=== PATIENT | female | born 1980 | race American Indian/Alaskan Native ===

== ENCOUNTER 2019-06-11 11:35 | Day surgery (SDC) | payer MEDICAID ==
[~2019-06-11 11:35] MED LIST: ANCEF/STERILE WATER 2 GM/20 ML 2 GM/20 ML SYRINGE IV NR; GABAPENTIN PO SCH; NACL 0.9% 1000 ML 1,000 ML IV SCH; TYLENOL PO NR
[2019-06-11] MEDS ORDERED: ZOFRAN IV PRN (12:28)
[2019-06-11] MEDS ORDERED: SUBLIMAZE IV PRN (12:28)
--- NOTE | 2019-06-11 12:29 | Anesthesia Day of Surgery ---
Anesthesia Day of Surgery - Day of Surgery Patient Examined: Yes Patient H&P Reviewed: Yes Patient is NPO: Yes
--- NOTE | 2019-06-11 12:33 | Anesthesia Consultation ---
Anesthesia Consult and Med Hx Date of service: 06/11/19 - Airway Anesthetic Teeth Evaluation: Chipped ROM Head & Neck: Adequate Mental/Hyoid Distance: Adequate Mallampati Class: Class II Intubation Access Assessment: Good - Pre-Operative Health Status ASA Pre-Surgery Classification: ASA2 Proposed Anesthetic Plan: General - Pulmonary Hx Smoking: No
[2019-06-11] MEDS ORDERED: MORPHINE IV ONE (13:00)
[2019-06-11] MEDS ORDERED: VERSED IV NR (13:00)
[2019-06-11] MEDS ORDERED: NACL 0.9% 250ML 250 ML ONE (13:49)
[2019-06-11] MEDS ORDERED: XYLOCAINE 1% 20 mL ONE (13:49)
[2019-06-11] MEDS ORDERED: MARCAINE-EPI 0.5%-1:200,000 INFILTRATI ONE (13:49)
[2019-06-11] MEDS ORDERED: HEPARIN 10,000 UNITS/10 ML ONE (13:49)
[2019-06-11] MEDS ORDERED: NACL P/F VIAL (10 ML) 10 ML ONE (13:50)
--- NOTE | 2019-06-11 14:05 | Short Stay Summary ---
Short Stay Documentation Date of service: 06/11/19 - History H&P: obtained from office - Allergies and Medications Current Medications: Allergies bupropion [From Wellbutrin] Allergy (Intermediate, Verified 06/11/19 12:52) Hives RESPERAL Allergy (Intermediate, Uncoded 06/11/19 12:52) Hives Home Medications Medication Instructions Recorded Confirmed Last Taken Type HYDROcodone/APAP 5-325 [[place] 1 each PO Q6HR PRN 06/11/19 06/11/19 06/10/19 History 5/325] Active Medications Acetaminophen (Tylenol) 1,000 mg PO PREOP NR Stop: 06/11/19 16:00 Last Admin: 06/11/19 12:40 Dose: 1,000 mg Documented by: Celecoxib (Celebrex) 200 mg PO PREOP NR Stop: 06/11/19 16:00 Last Admin: 06/11/19 12:40 Dose: 200 mg Documented by: Fentanyl (Sublimaze) 50 mcg IV Q5MIN PRN PRN Reason: Pain , Severe (7-10) Stop: 06/11/19 23:00 Gabapentin (Neurontin) 600 mg PO PREOP BRYANT Stop: 06/11/19 16:00 Last Admin: 06/11/19 12:40 Dose: 600 mg Documented by: Sodium Chloride (Nacl 0.9% 1000 Ml) 1,000 mls @ 75 mls/hr IV DIRECT BRYANT Last Admin: 06/11/19 12:50 Dose: 75 mls/hr Documented by: Cefazolin Sodium (Ancef/Sterile Water 2 Gm/20 Ml) 2 gm in 20 mls @ 80 mls/hr IV PREOP NR; Protocol Stop: 06/11/19 16:00 Midazolam HCl (Versed) 2 mg IV PREOP NR Stop: 06/11/19 23:59 Last Admin: 06/11/19 12:52 Dose: 2 mg Documented by: Ondansetron HCl (Zofran) 4 mg IV ONCE PRN PRN Reason: Nausea And Vomiting - Physical exam General appearance: no acute distress Integumentary: no rash Lungs: Normal air movement Neurological: Normal speech - Brief post op/procedure progress note Date of procedure: 06/11/19 (dictation:[id number]) Pre-op diagnosis: left breast cancer Post-op diagnosis: same Procedure: US guided port placement IVF 700cc EBL min Anesthesia: GETA Findings: normal anatomy Surgeon: MANSI ARREOLA Estimated blood loss: minimal Pathology: none Condition: stable - Hospital course Hospital course: uneventful - Disposition Condition at discharge: Stable Disposition: DC-01 TO HOME OR SELFCARE Short Stay Discharge Plan Diet: regular Wound: open to air, keep clean and dry Special Instructions: no heavy lifting (for 1 week) Additional Instructions: Post Operative Instructions Activity: no heavy lifting for next 1 week. May shower tomorrow. Pat dry the wound or wounds. Keep incision sites clean and dry After surgery, start with a light diet. Consider having a liquid diet first. If you do well, you can advance to a regular diet as you feel comfortable. Apply an ice pack to the wound or wounds for 10-20 minutes at a time. Do this at least 4-5 times a day. You can do it more if he would like. Alternate the use of ibuprofen and Tylenol for the first 2 days. I want you to take these on a scheduled basis. Take 600 mg of ibuprofen every 6 hours. Take 500 mg of Tylenol every 6 hours. You should alternate these 2 medicines. In other words, beginning with the ibuprofen. After 3 hours, take the Tylenol. Keep alternating the 2 drugs every 3 hours. Do this on a scheduled basis for the first 2 days. After that, you can take them as needed. It is very important that you use the prescription pain medicine only for very severe pain. YOU WERE MEDICATED WITH 1 HYDROCODONE TAB BY MOUTH AT 4:30 PM . Do not take the prescription medicine before you try using the ibuprofen and Tylenol. We will call you in a couple of days to see how youre doing. If you have any questions or concerns, always feel free to call the clinic at any time. Home with Smart Port Booklet and Smart ID CARD Follow up with: MARY QUIÑONEZ MD [Primary Care Provider] - 7 Days Forms: Outpatient Surgery DC Inst. Prescriptions: HYDROcodone/APAP 5-325 [[place] 5-325 mg TAB] 1 tab PO Q6HR PRN #20 PRN Reason: Pain , Severe (7-10)
[2019-06-11] MEDS ORDERED: DILAUDID ONE (14:14)
[2019-06-11] MEDS ORDERED: XYLOCAINE MPF 2% ONE (14:14)
[2019-06-11] MEDS ORDERED: DIPRIVAN 10 MG/ML IV ONE (14:14)
[2019-06-11] MEDS ORDERED: HEPARIN IV ONE (14:34)
[2019-06-11] MEDS ORDERED: NACL 0.9% 250ML IV ONE (14:35)
[2019-06-11] MEDS ORDERED: MARCAINE-EPI/PF 0.5%-1:200,000 INFILTRATI ONE (14:35)
[2019-06-11] MEDS ORDERED: XYLOCAINE 1% 20 mL INFILTRATI ONE (14:35)
[2019-06-11] MEDS ORDERED: TORADOL ONE (15:10)
[2019-06-11] MEDS ORDERED: ZOFRAN ONE (15:10)
--- NOTE | 2019-06-11 15:35 | Fluoroscopy Report ---
FLUOROSCOPY CENTRAL VENOUS DEVICE PLACEMENT HISTORY: Left breast cancer, Cgykiv-t-Blay insertion FINDINGS: 31 seconds of fluoroscopy time was provided by radiology during right Alzwge-r-Hacm placeme nt. 2 AP images of the chest are presented. The distal tip of the Jrngvx-g-Tolw terminates in the sup erior right atrium. There is poor in aspiration. No evidence for pneumothorax. Prominence is noted in both hilar regions. Heart size is within normal limits. IMPRESSION: Right Mywmxq-s-Mhos placement. No pneumothorax. Signer Name: Remington Miller Jr, MD Signed: 06/11/2019 3:31 PM Workstation Name: [id number]
--- NOTE | 2019-06-11 15:53 | Operative Report ---
PREOPERATIVE DIAGNOSIS: Left breast cancer. POSTOPERATIVE DIAGNOSIS: Left breast cancer. PROCEDURES: 1. Tunneled central venous catheter with subcutaneous port. 2. Ultrasound-guided vascular access. ATTENDING PHYSICIAN: Hayley Romeo MD ANESTHESIA: General. ESTIMATED BLOOD LOSS: Minimal. FLUIDS: 700 mL. FINDINGS: Normal vascular anatomy. IMPLANTS: Smart port. COMPLICATIONS: None. DISPOSITION: Stable, transferred to Recovery Room. INDICATIONS: This is a 38-year-old female, who was recently diagnosed with left breast cancer. Initial plans were made for a surgical intervention. However, the breast cancer advanced rapidly such that neoadjuvant therapy was felt to be needed. The patient was sent to General Surgery for port placement. Procedure, risks, and benefits were explained to patient. Risks included, but were not limited to, infection, bleeding, pain, injury to surrounding structures, possible port malfunction or infection, and possible need for further procedures in the future. The patient understood and consented. OPERATIVE NOTE: The patient was brought to the operating room and placed on the table in supine position. Initial ultrasound evaluation was done after general anesthesia was established. Subclavian vein was very small and deep. Internal jugular vein was widely patent and no stenosis, no clots, and no abnormalities along the entire length under the ultrasound guidance. Sterile prep and drape was performed. Time-out was called. SCDs were in place. Antibiotics had been given. Under ultrasound guidance, I anesthetized the planned insertion site in the area just above the vein. A small incision was made. An introducer needle was inserted under ultrasound guidance. I watched the needle go into the vein directly. We had good aspiration of blood. Guidewire went in easily. However, we did not go all the way as we normally expected. Fluoroscopy was brought in. Wire was going down the right subclavian vein and this was pulled back and then redirected under fluoroscopic guidance and it went into the appropriate location in the right side of the heart. Guidewire was secured. Planned pocket site was anesthetized. Oblique incision was made along the lines of skin tension. Subcutaneous pocket was created. Additional local was injected and the catheter tract site was anesthetized. Tunneler was passed and brought out the vascular access site. After that, the dilator and sheath were passed over the guidewire very easily. Dilator and wire were removed. Catheter was inserted under fluoroscopic guidance. We adjusted the length to be approximately 2-3 vertebral bodies below the shreya. We then divided the distal aspect of the catheter, attached to the port, and then placed in the pocket. We had very good aspiration and flushing with dilute heparinized saline. The patient was placed in the reverse Trendelenburg position at this point. A locking solution was administered. Additional local was administered. Please note the patient had been in Trendelenburg position during the beginning portion of the case and then was changed to reverse Trendelenburg once the catheter was in position. Deep layer of the pocket was closed with interrupted 3-0 Vicryl sutures. Skin was closed with 4-0 Monocryl subcuticular stitches. Skin was cleaned and dried. Dermabond was placed. The patient tolerated procedure well. There were no complications. All counts were correct at the end. Chest x-ray unofficially per my read shows no evidence of any complication. Catheter appears to be in good position and there was no kinking of the catheter. I spoke with the godmother, Ms. Silverio, at the end of the case by phone. JOB# [id number] SPENSER/VIVIENNE
[2019-06-11] MEDS ORDERED: NORCO 5/325 PO PRN (16:04)
[2019-06-11 16:24] VITALS: BP 116/72
--- NOTE | 2019-06-11 21:21 | Post Anesthesia Evaluation ---
- Post Anesthesia Evaluation Patient Participated: Yes Airway Patent: Yes Stable Respiratory Function: Yes Nausea/Vomiting: No Temp > 96.8F: Yes Pain Manageable: Yes Adequeate Hydration: Yes Anesthesia Complications: No Block Receding Appropriately: Not Applicable Patient on Ventilator: No
== END 2019-06-11 11:36 | disposition home or self-care (01) ==
LOC: OR 11:35
PROVIDERS: ATTEND Surgery
DX: C50.212 Malignant neoplasm of upper-inner quadrant of left female breast (principal); Z88.8 Allergy status to other drugs, medicaments and biological substances; Z79.899 Other long term (current) drug therapy; Z87.891 Personal history of nicotine dependence; Z98.890 Other specified postprocedural states
CPT/HCPCS: 36561; 77001; 81025; C1788; J0690; J1170; J1644; J1885; J2250; J2270; J2405; J2704; J7030; J7050

== ENCOUNTER 2019-08-29 13:23 | Emergency (ER) | payer MEDICAID ==
[2019-08-29] MEDS ORDERED: oxyCODONE /ACETAMINOPHEN 5-325MG TAB PO ONE (14:49)
[2019-08-29] MEDS ORDERED: ONDANSETRON 4 MG ODT TAB PO ONE (14:49)
--- NOTE | 2019-08-29 14:54 | Emergency Department Report ---
ED General Adult HPI - General Chief complaint: Chest Pain Stated complaint: CHEST PAIN Time Seen by Provider: 08/29/19 14:43 Source: patient Mode of arrival: Stretcher Limitations: No Limitations - History of Present Illness Initial comments: Patient presents to the emergency Department chief complaint of left breast pain. Patient has a history of breast cancer is currently receiving chemotherapy. Patient states that she missed her last chemotherapy treatment which was on August 20 due to being incarcerated. Patient states she was rested on August 14 and released today. Patient states that she normally takes Percocet for her breast pain. [facility] next Monday for reinitiation of her chemotherapy. She is breast surgeon is Dr. Velasquez. Patient denies any air chest pain, shortness breath, recent travel. Patient also denies any leg pain. -: Gradual Location: chest Radiation: non-radiation Severity scale (0 -10): 8 Quality: aching Consistency: constant Improves with: none Worsens with: none Associated Symptoms: denies other symptoms Treatments Prior to Arrival: none - Related Data Previous Rx's Medication Instructions Recorded Last Taken Type HYDROcodone/APAP 5-325 [[place] 1 tab PO Q6HR PRN #20 06/11/19 Unknown Rx 5-325 mg TAB] Ondansetron [Zofran Odt] 4 mg PO Q4HR PRN #20 tab.rapdis 08/29/19 Unknown Rx oxyCODONE /ACETAMINOPHEN [Percocet 1 tab PO Q6HR PRN #20 tablet 08/29/19 Unknown Rx 5/325] Allergies Allergy/AdvReac Type Severity Reaction Status Date / Time bupropion [From Wellbutrin] Allergy Intermediate Hives Verified 06/11/19 12:52 divalproex sodium Allergy Unknown Verified 08/29/19 14:02 [From Depakote] RESPERAL Allergy Intermediate Hives Uncoded 06/11/19 12:52 ED Review of Systems ROS: Stated complaint: CHEST PAIN Other details as noted in HPI Comment: All other systems reviewed and negative Constitutional: denies: chills, fever Eyes: denies: eye pain, eye discharge, vision change ENT: denies: ear pain, throat pain Respiratory: denies: cough, shortness of breath, wheezing Cardiovascular: denies: chest pain, palpitations Endocrine: no symptoms reported Gastrointestinal: denies: abdominal pain, nausea, diarrhea Genitourinary: denies: urgency, dysuria, discharge Musculoskeletal: denies: back pain, joint swelling, arthralgia Skin: denies: rash, lesions Neurological: denies: headache, weakness, paresthesias Psychiatric: denies: anxiety, depression Hematological/Lymphatic: denies: easy bleeding, easy bruising ED Past Medical Hx - Past Medical History Previous Medical History?: Yes 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 - Social History Smoking Status: Former Smoker Substance Use Type: None - Medications Home Medications: Home Medications Medication Instructions Recorded Confirmed Last Taken Type HYDROcodone/APAP 5-325 [[place] 1 tab PO Q6HR PRN #20 06/11/19 Unknown Rx 5-325 mg TAB] Ondansetron [Zofran Odt] 4 mg PO Q4HR PRN #20 tab.rapdis 08/29/19 Unknown Rx oxyCODONE /ACETAMINOPHEN [Percocet 1 tab PO Q6HR PRN #20 tablet 08/29/19 Unknown Rx 5/325] ED Physical Exam - General Limitations: No Limitations General appearance: alert, in no apparent distress - Head Head exam: Present: atraumatic, normocephalic, other (there is alopecia secondary to chemotherapy) - Eye Eye exam: Present: normal appearance, PERRL, EOMI - ENT ENT exam: Present: mucous membranes moist - Neck Neck exam: Present: normal inspection - Respiratory Respiratory exam: Present: normal lung sounds bilaterally, other (patient has a mass to the left breast). Absent: respiratory distress - Cardiovascular Cardiovascular Exam: Present: regular rate, normal rhythm. Absent: systolic murmur, diastolic murmur, rubs, gallop - GI/Abdominal GI/Abdominal exam: Present: soft, normal bowel sounds - Extremities Exam Extremities exam: Present: normal inspection - Back Exam Back exam: Present: normal inspection - Neurological Exam Neurological exam: Present: alert, oriented X3, CN II-XII intact. Absent: motor sensory deficit - Psychiatric Psychiatric exam: Present: normal affect, normal mood - Skin Skin exam: Present: warm, dry, intact, normal color. Absent: rash ED Medical Decision Making - Medical Decision Making The patient politely declined a cardiac workup stating it's just the mass in her left breast that's causing pain. Critical care attestation.: If time is entered above; I have spent that time in minutes in the direct care of this critically ill patient, excluding procedure time. ED Disposition Clinical Impression: Breast pain, left, Breast cancer Disposition: TO HOME OR SELFCARE Is pt being admited?: No Does the pt Need Aspirin: No Condition: Stable Instructions: Breast Cancer (ED) Additional Instructions: return if worse Referrals: PRIMARY CAREMD [Primary Care Provider] - 3-5 Days MARY VELASQUEZ MD [Staff Physician] - 3-5 Days Time of Disposition: 14:54
[2019-08-29 15:42] VITALS: BP 107/73
== END 2019-08-29 15:34 | disposition home or self-care (01) ==
LOC: EEVIPCON 13:23 → ED 13:23
DX: C50.912 Malignant neoplasm of unspecified site of left female breast (principal); Z87.891 Personal history of nicotine dependence; Z79.899 Other long term (current) drug therapy; Z88.8 Allergy status to other drugs, medicaments and biological substances
CPT/HCPCS: Q0162

== ENCOUNTER 2019-10-15 11:24 | Outpatient (CLI) | payer MEDICAID ==
--- NOTE | 2019-10-15 13:49 | Ultrasound Report ---
LEFT DIGITAL DIAGNOSTIC MAMMOGRAM WITH CAD 10/15/2019 LEFT COMPLETE BREAST ULTRASOUND INDICATION: Follow-up known left breast cancer under treatment with chemotherapy. TECHNIQUE: Digital left mammographic imaging was performed. Complete ultrasound of all four (4) quad rants was performed. This examination was interpreted with the benefit of Computer-Aided Detection (C AD) analysis. COMPARISON: 04/04/2019 mammogram and left breast ultrasound FINDINGS: Breast Density: The breast is almost entirely fatty. MAMMOGRAPHIC FINDINGS: The known left breast cancer in the upper inner quadrant is in irregular circu mscribed mass measuring 7.8 x 7.1 x 7.1 cm compared to 3.5 x 3.4 x 3.0 cm on the last mammogram. 2 ad ditional satellite masses on the MLO view measuring 1.5 x 1.1 cm. No suspicious calcifications. ULTRASOUND FINDINGS: Complete sonographic evaluation of all 4 quadrants and retroareolar region was p erformed. Ultrasound of the left breast demonstrated an oval irregular solid heterogeneous hypoecho ic mass at 10:00 10 cm from the nipple measuring approximately 7.0 x 4.7 x 7.5 cm compared to 2.4 x 2 .3 x 2.4 cm on the last ultrasound. In addition to adjacent masses at 11:00 8 cm from the nipple ochoa ure 1.4 x 0.9 x 1.1 cm and there are 0.8 x 0.9 x 0.8 cm. Ultrasound of the left axilla demonstrated a single lymph node with a fatty hilum measuring 1.1 cm. The cortex measures 4.8 mm in thickness. IMPRESSION: A poor response to chemotherapy with the known cancer triple its previous size. 2 new sat ellite masses measure 1.4 and 0.9 cm at 11:00 8 cm from the nipple. A single left axillary lymph node with only mild cortical thickening. BI-RADS Category 6: Known Biopsy-Proven Malignancy. A "normal" or negative report should not discourage follow up or biopsy of a clinically significant f inding. A written summary of these findings will be mailed to the patient. The patient will be entered into a mammography reporting system which will generate a reminder letter for the patient's next appointmen t at the appropriate interval. According to the [employer], yearly mammograms are recommended starting at age 40 and continuing as long as a woman is in good health. Breast MRI is recommended for women with an dereck roximately 20-25% or greater lifetime risk of breast cancer, including women with a strong family his tory of breast or ovarian cancer and women who have been treated for Hodgkin's disease. Signer Name: Giorgio Best MD Signed: 10/15/2019 1:44 PM Workstation Name: [id number]
== END 2019-10-15 11:25 | disposition home or self-care (01) ==
LOC: SPVWC 11:24
PROVIDERS: ATTEND Surgery
DX: C50.912 Malignant neoplasm of unspecified site of left female breast (principal); N63.22 Unspecified lump in the left breast, upper inner quadrant

== ENCOUNTER 2019-11-06 08:32 | Observation (INO) | payer MEDICAID ==
--- NOTE | 2019-11-04 10:20 | Anesthesia Consultation ---
Anesthesia Consult and Med Hx Date of service: 11/04/19 - Airway Anesthetic Teeth Evaluation: Poor (some missing teeth), Chipped (some front teeth) ROM Head & Neck: Adequate Mental/Hyoid Distance: Adequate Mallampati Class: Class II Intubation Access Assessment: Probably Good - Pre-Operative Health Status ASA Pre-Surgery Classification: ASA3 Proposed Anesthetic Plan: General Nerve Block: PEC - Pulmonary Hx Smoking: No (SINCE AGE 14 1.5PPD; QUIT 03/2019) Hx Asthma: Yes ( A CHILD) - Central Nervous System Hx Seizures: Yes ( A CHILD) Hx Psychiatric Problems: Yes (Anxiety/depression, PTSD) - Hematic Hx Anemia: Yes - Other Systems Hx Alcohol Use: No Hx Substance Use: No Hx Cancer: Yes (Left breast CA, s/p chemo, not responding) Hx Obesity: Yes
[~2019-11-06 08:32] MED LIST changes: -ANCEF/STERILE WATER 2 GM/20 ML 2 GM/20 ML SYRINGE IV NR; +CELECOXIB 200 MG CAP PO NR; +FAMOTIDINE 20 MG/2 ML INJ IV NR; +GABAPENTIN 300 MG CAP PO NR; -GABAPENTIN PO SCH; +LACTATED RINGERS 1,000 ML IV SCH; +MIDAZOLAM 2 MG/2 ML INJ IV NR; -NACL 0.9% 1000 ML 1,000 ML IV SCH; +SCOPOLAMINE TRANSDERMAL PATCH 72 HR TD NR; -TYLENOL PO NR; +ceFAZolin/Water 2 GM/20 ML 2 GM/20 ML SYRINGE IV NR; +fentaNYL 100 MCG/2 ML INJ IV NR
[2019-11-06] MEDS ORDERED: dexAMETHasone 4 MG/ML VIAL ONE (11:34)
[2019-11-06] MEDS ORDERED: BUPIVACAINE-EPINEPHRINE/PF 0.25%-1:200,000 (30 ML) VIAL INFILTRATI ONE (11:35)
[2019-11-06] MEDS ORDERED: HYDROmorphone 1 MG/1 ML INJ IV PRN (11:45)
--- NOTE | 2019-11-06 11:45 | Anesthesia Day of Surgery ---
Anesthesia Day of Surgery - Day of Surgery Patient Examined: Yes Patient H&P Reviewed: Yes Patient is NPO: Yes
[2019-11-06] MEDS ORDERED: ONDANSETRON 4 MG/2 ML INJ ONE (11:53)
[2019-11-06] MEDS ORDERED: dexAMETHasone 20 MG/5 ML VIAL ONE (11:53)
[2019-11-06] MEDS ORDERED: fentaNYL 100 MCG/2 ML INJ ONE ×3 (11:53→14:06)
[2019-11-06] MEDS ORDERED: propofoL 200 MG/20 ML VIAL IV ONE (11:54)
[2019-11-06] MEDS ORDERED: METHYLENE BLUE 50 MG/10 ML AMP ONE (12:07)
[2019-11-06] MEDS ORDERED: KETAMINE/STERILE WATER 50 MG/ML SYRINGE ONE ×2 (13:04→17:02)
[2019-11-06] MEDS ORDERED: WATER FOR IRRIG STERILE 1,500 ML BOTTLE IR ONE (14:00)
[2019-11-06] MEDS ORDERED: SODIUM CHLORIDE 0.9% P/F 10 ML VIAL INFILTRATI ONE (14:01)
[2019-11-06] MEDS ORDERED: METHYLENE BLUE 50 MG/10 ML AMP IRRIGATION ONE (14:01)
[2019-11-06] MEDS ORDERED: MORPHINE 2 MG/1 ML INJ ONE (14:17)
[2019-11-06] MEDS ORDERED: ceFAZolin 1 GM VIAL ONE (17:10)
[2019-11-06] MEDS ORDERED: LACTATED RINGERS 2,000 ML ONE (17:48)
[2019-11-06] MEDS ORDERED: HYDROmorphone 1 MG/1 ML INJ ONE (19:03)
[2019-11-06] MEDS ORDERED: LACTATED RINGERS 1,000 ML ONE (19:05)
--- NOTE | 2019-11-06 19:24 | Operative Report ---
Operative Report Operative Report: Date of Service: November 06, 2019 Preoperative diagnosis: Left breast cancer of the upper inner quadrant Postoperative diagnosis: Same Procedure: Left total mastectomy with sentinel lymph node biopsy followed by ALND and right total mastectomy Surgeon: Flor Velasquez M.D. Hoop Expander: Dr. Lorenz Anesthesia: Gen. Findings: Left breast clip present within left total mastectomy. 1 axillary lymph node identified and positive for malignancy on frozen section of pathology and proceeded with left axillary lymph node dissection Complications: None Drains: Two 19 Cypriot DAVID drains on left and one right 19 [place] DAVID Estimated blood loss: 150-200 cc Disposition: PACU in good condition Indications for operative procedure: This is a 38-year-old lady with stage III left breast cancer of the upper inner quadrant; IDCA grade 3 cT3N0/1M0. She was started on neoadjuvant chemotherapy with disease progression after patient missed chemotherapy due to incareration. She was resumed on chemotherapy and regimen changed after left breast cancer mass continued to increase in size and breast cancer mass continued to increase despite change in chemotherapy. Recommendations were to proceed with left total mastectomy and plastic surgery available if skin not able to be closed primarily. She wished to proceed with a prophylactic right mastectomy as well. Procedure in detail: The patient was taken to the operating room and was placed supine. Gen. anesthesia was administered. The left nipple was injected with radioisotope and 1 cc of methylene blue. Bilateral chest and axillas were prepped and draped in the normal sterile operative fashion. Timeout was performed. Typical mastectomy incision markings were made with left mastectomy encompassing known cancer of the upper inner quadrant, left breast cancer mass at 11:00 position 5 cm from the nipple of at least 8-10 cm. Attention was taken toward the right breast first. First began raising of the superior flap to the level of the clavicle superiorly and posteriorly to the pectoralis muscle. Followed by raising of the medial flap to the level of the sternum and posteriorly to the pectoralis muscle. Followed by raising of the lateral flap to the level of the latissimus dorsi muscle and taken down posteriorly. Followed by raising of the inferior flap to the level of the inframammary fold taken posterior to the pectoralis muscle. The mastectomy/breast was removed from the pectoralis muscle without incident. The specimen was appropriately marked and sent to pathology. Hemostasis was obtained. The port was noted and unharmed. DAVID drain placed. The subcutaneous tissues were approximated and closed using interrupted 3-0 Vicryl followed by running 4-0 Monocryl and dermabond. Attention was taken towards the left breast. A gamma probe was inserted into the axilla to identify the sentinel lymph node location with uptake noted. Skin markings were made to include the area of known cancer. A skin incision was made with a 10 blade knife and dissection taken down to the subcutaneous tissues. First began raising of the superior flap to the level of the clavicle superiorly and posteriorly to the pectoralis muscle. Followed by raising of the medial flap to the level of the sternum and posteriorly to the pectoralis muscle. Followed by raising of the lateral flap to the level of the latissimus dorsi muscle and taken down posteriorly. The gamma probe was inserted into the axilla, the axillary fascia was opened and 2 axillary lymph nodes were identified that was dissected free and sent to pathology. Patient with negative axillary lymph node prior to chemotherapy but clinically concerned and probable false negative. Axillary lymph node was sent to pathology with findings positive for malignancy noted on frozen section. Then proceeded with raising of the inferior flap to the level of the inframammary fold taken posterior to the pectoralis muscle. The mastectomy/breast was removed from the pectoralis muscle without incident. The specimen was appropriately marked and sent to radiology with findings of breast clip present and sent to pathology. Attention was then taken towards the left axilla. First began opening of the axillary fascia further. The lattismus dorsi muscle was identified and followed superiorly. Then proceeded with identification of the axillary vein followed by identification of the thoracodorsal bundle and long thoracic nerve. Axillary lymph nodes were then removed from the above boundaries with the aid of the bovie cautery in a sweeping-like motion and then sent to pathology. Axillary lymph nodes from level I and II were removed. Both nerves were identified and unharmed. Some bulky axillary lymphadenopathy was noted. Hemostasis was noted. The chest wall was irrigated and suctioned. Hemostasis was obtained. 2 DAVID drains were placed. The subcutaneous tissues were approximated and closed using interr upted 3-0 Vicryl followed by a running 4-0 Monocryl and dermabond. She was extubated and transported to PACU in good condition.
--- NOTE | 2019-11-06 19:28 | Short Stay Summary ---
Short Stay Documentation Date of service: 11/06/19 - History H&P: obtained from office - Allergies and Medications Current Medications: Allergies bupropion [From Wellbutrin] Allergy (Intermediate, Verified 10/29/19 14:32) Hives and Hallucinations divalproex sodium [From Depakote] Allergy (Verified 10/29/19 14:32) Itching RESPERAL Allergy (Intermediate, Uncoded 06/11/19 12:52) Hives Home Medications Medication Instructions Recorded Confirmed Last Taken Type Ondansetron [Zofran Odt] 4 mg PO Q4HR PRN #20 tab.rapdis 08/29/19 11/06/19 11/03/19 Rx ALPRAZolam [Xanax TAB] 1 tab PO QHS 10/29/19 11/06/19 11/05/19 History Oxycodone HCl [roxiCODONE] 30 mg PO TID PRN 10/29/19 10/29/19 11/06/19 07:00 History Promethazine [Phenergan] 25 mg PO Q6HR PRN 10/29/19 11/06/19 11/05/19 History oxyCODONE ER [oxyCONTIN ER] 20 mg PO Q12HR 10/29/19 10/29/19 11/06/19 07:00 History Active Medications Hydromorphone HCl (Dilaudid) 0.5 mg IV Q10MIN PRN PRN Reason: Pain , Severe (7-10) Stop: 11/06/19 20:00 Cefazolin Sodium (Ancef/Sterile Water 2 Gm/20 Ml) 2 gm in 20 mls @ 80 mls/hr IV PREOP NR; Protocol Stop: 11/06/19 23:59 Lactated Ringer's (Lactated Ringers) 1,000 mls @ 100 mls/hr IV DIRECT BRYANT Last Admin: 11/06/19 11:55 Dose: 100 mls/hr Documented by: Midazolam HCl (Versed) 2 mg IV PREOP NR Stop: 11/06/19 23:59 Last Admin: 11/06/19 12:04 Dose: 2 mg Documented by: - Brief post op/procedure progress note Date of procedure: 11/06/19 Pre-op diagnosis: left breast cancer Post-op diagnosis: same Procedure: left MRM and right total mastectomy Anesthesia: GETA Findings: left breast clip; left pos SLN and proceeded with ALND Surgeon: MARY QUIÑONEZ Estimated blood loss: other (150-200 cc) Pathology: list Specimen disposition: to lab Condition: stable - Disposition Condition at discharge: Good Disposition: [id number]/TX-[id number]-[facility]M [facility] HOSP IP Short Stay Discharge Plan Activity: other (no heavy lifting) Diet: regular Wound: keep clean and dry (wear breast binder) Follow up with: PRIMARY CAREMD [Primary Care Provider] - 7 Days MARY QUIÑONEZ MD [Staff Physician] - 7 Days
[2019-11-06] MEDS ORDERED: ONDANSETRON 4 MG/2 ML INJ IV PRN ×2 (19:29→19:36)
[2019-11-06] MEDS ORDERED: METOCLOPRAMIDE 10 MG TAB PO PRN (19:29)
[2019-11-06] MEDS ORDERED: diphenhydrAMINE 25 MG CAP PO PRN (19:29)
[2019-11-06] MEDS ORDERED: ACETAMINOPHEN 325 MG TAB PO PRN (19:29)
[2019-11-06] MEDS ORDERED: oxyCODONE /ACETAMINOPHEN 5-325MG TAB PO PRN (19:29)
[2019-11-06] MEDS ORDERED: MORPHINE 2 MG/1 ML INJ IV PRN (19:31)
[2019-11-06] MEDS ORDERED: LACTATED RINGERS 1,000 ML IV SCH (20:00)
--- NOTE | 2019-11-06 20:09 | Post Anesthesia Evaluation ---
- Post Anesthesia Evaluation Patient Participated: Yes Airway Patent: Yes Stable Respiratory Function: Yes Nausea/Vomiting: No Temp > 96.8F: Yes Pain Manageable: Yes Adequeate Hydration: Yes Anesthesia Complications: No
[2019-11-06] MEDS: DOCUSATE SODIUM 100 MG CAP PO SCH (22:11)
[2019-11-07] MEDS: HYDROmorphone 2 MG TAB PO PRN ×2 (02:23→08:15)
--- NOTE | 2019-11-07 07:28 | Progress Note ---
Assessment and Plan This is a 38 year old lady with Stage III left breast cancer of upper inner quadrant, POD# 1 right total mastectomy and left MRM. 1. No acute events overnight. 2. Pain in good control. 3. Bilateral chest incision healing well, skin well perfused, no hematoma. 4. DAVID drain education. 5. OOB to hallway. 6. D/C planning for today Subjective Date of service: 11/07/19 Principal diagnosis: Left breast cancer Interval history: POD#1 right total mastectomy and left MRM Objective - Constitutional Vitals: Vital Signs - 12hr 11/06/19 11/06/19 11/06/19 19:30 19:35 19:45 Temperature Pulse Rate 103 H 96 H 91 H Respiratory 16 16 16 Rate Blood Pressure 132/88 131/89 125/85 Blood Pressure [Right] O2 Sat by Pulse 99 99 99 Oximetry 11/06/19 11/06/19 11/06/19 20:00 20:15 20:37 Temperature 97.8 F 98.4 F Pulse Rate 90 84 82 Respiratory 16 16 18 Rate Blood Pressure 131/91 131/98 Blood Pressure 133/86 [Right] O2 Sat by Pulse 98 99 99 Oximetry 11/07/19 00:54 Temperature 97.5 F L Pulse Rate 83 Respiratory 18 Rate Blood Pressure 110/64 Blood Pressure [Right] O2 Sat by Pulse 97 Oximetry General appearance: Present: no acute distress - EENT Eyes: PERRL, EOM intact ENT: hearing intact, other (abnormal dentition) Ears: bilateral: normal - Neck Neck: supple, normal ROM - Respiratory Respiratory effort: normal - Breasts Breasts: other (bilateral chest incisions healing well; skin well perfused; no hematoma; inc c/d/i; DAVID drains to bulb suction) - Cardiovascular Rhythm: regular Extremities: no ischemia, pulses intact, pulses symmetrical, No edema, normal temperature, normal color, Full ROM - Gastrointestinal General gastrointestinal: Present: soft, non-tender, non-distended - Genitourinary Female genitourinary: deferred - Integumentary Integumentary: clear, warm, dry - Musculoskeletal Musculoskeletal: strength equal bilaterally - Neurologic Neurologic: CNII-XII intact, moves all extremities - Psychiatric Psychiatric: appropriate mood/affect, intact judgment & insight, memory intact, cooperative Medications & Allergies - Medications Allergies/Adverse Reactions: Allergies bupropion [From Wellbutrin] Allergy (Intermediate, Verified 10/29/19 14:32) Hives and Hallucinations divalproex sodium [From Depakote] Allergy (Verified 10/29/19 14:32) Itching RESPERAL Allergy (Intermediate, Uncoded 06/11/19 12:52) Hives Home Medications: Home Medications Medication Instructions Recorded Confirmed Last Taken Type Ondansetron [Zofran Odt] 4 mg PO Q4HR PRN #20 tab.rapdis 08/29/19 11/06/19 11/03/19 Rx ALPRAZolam [Xanax TAB] 1 tab PO QHS 10/29/19 11/06/19 11/05/19 History Oxycodone HCl [roxiCODONE] 30 mg PO TID PRN 10/29/19 10/29/19 11/06/19 07:00 History Promethazine [Phenergan] 25 mg PO Q6HR PRN 10/29/19 11/06/19 11/05/19 History oxyCODONE ER [oxyCONTIN ER] 20 mg PO Q12HR 10/29/19 10/29/19 11/06/19 07:00 History HYDROcodone/APAP 5-325 [Sabina 1 each PO Q6HR PRN #25 tablet 11/07/19 Unknown Rx 5/325] Active Medications: Generic Name Dose Route Start Last Admin Trade Name Freq PRN Reason Stop Dose Admin Acetaminophen 650 mg 11/06/19 19:29 Tylenol PO Q6H PRN Pain MILD(1-3)/Fever >100.5/SUNSHINE Diphenhydramine HCl 25 mg 11/06/19 19:29 Benadryl PO Q8H PRN Itching Docusate Sodium 100 mg 11/06/19 22:00 11/06/19 22:11 Colace PO 100 mg BID BRYANT Administration Hydromorphone HCl 2 mg 11/06/19 19:29 11/07/19 02:23 Dilaudid PO 2 mg Q6H PRN Administration Pain , Severe (7-10) Lactated Ringer's 1,000 mls @ 125 mls/hr 11/06/19 20:00 11/06/19 21:01 Lactated Ringers IV 125 mls/hr DIRECT BRYANT Administration Metoclopramide HCl 10 mg 11/06/19 19:29 Reglan PO Q6H PRN Nausea And Vomiting Morphine Sulfate 2 mg 11/06/19 19:31 11/06/19 22:11 Morphine IV 2 mg Q4H PRN Administration Pain, Moderate (4-6) Ondansetron HCl 4 mg 11/06/19 19:29 Zofran IV Q8H PRN N/V unrelieved by Reglan Ondansetron HCl 4 mg 11/06/19 19:36 Zofran IV ONCE PRN Nausea And Vomiting Oxycodone/Acetaminophen 1 tab 11/06/19 19:29 Percocet 5/325 PO Q6H PRN Pain, Moderate (4-6) Sodium Chloride 10 ml 11/06/19 19:29 Sodium Chloride Flush Syringe 10 Ml IV PRN PRN LINE FLUSH
[2019-11-07] MEDS: DOCUSATE SODIUM 100 MG CAP PO SCH (08:15)
[2019-11-07] MEDS ORDERED: oxyCODONE /ACETAMINOPHEN 5-325MG TAB PO ONE (11:50)
[2019-11-07] MEDS ORDERED: oxyCODONE /ACETAMINOPHEN 5-325MG TAB PO PRN (11:50)
[2019-11-07 16:51] VITALS: BP 99/60
--- NOTE | 2019-11-08 07:41 | XRay Report ---
SPECIMEN RADIOGRAPH LEFT BREAST INDICATION: LT Breast Ca. COMPARISON: 10/15/2019 FINDINGS: A single biopsy clip and an 8 cm mass is identified within the specimen. IMPRESSION: 1. Excision of the known cancer. Signer Name: Giorgio Best MD Signed: 11/08/2019 7:37 AM Workstation Name: [id number]
== END 2019-11-07 18:05 | disposition home or self-care (01) ==
LOC: OR 08:32 → OB 19:29
PROVIDERS: ADMIT Surgery; ATTEND Surgery
DX: C50.212 Malignant neoplasm of upper-inner quadrant of left female breast (principal); G40.909 Epilepsy, unspecified, not intractable, without status epilepticus; F41.9 Anxiety disorder, unspecified
CPT/HCPCS: 19303; 38525; 38792; 64450; 76098; 78800; 81025; 88307; 88309; 88331; 88333; 96374; A9541; G0378; J0690; J1100; J1170; J2250; J2270; J2405; J2704; J3010; J7120; Q9968